=== PATIENT | female | born 1930 | race Caucasian/White ===

== ENCOUNTER 2016-05-09 08:02 | Day surgery (SDC) | payer MEDICARE, MEDICAID ==
[~2016-05-09] VITALS: Ht 165.1 cm; Wt 78.0 kg
[~2016-05-09 08:02] MED LIST: ALPR0.254 PO; AMLO10TA2 PO; AMLO2.5T PO; AMLO5TAB2 PO; APIX5TAB PO; ASCO-262 PO; ASCO500T7 PO; ASP325T PO; ASPI-983 PO; Apixaban; CARB1DRO OU; CLN.1T PO; FLEC100T PO; FLEC50TA; KRIL1CAP5 PO; L. R1CAP3 PO; LEVO75TA PO; LEVO75TA6 PO; LEVO88TA26 PO; MELA1TAB10 PO; METO-272 PO; METO75TA PO; MULT-1029 PO; NF-ESOM40C PO; OMEG-136 PO; OMEG1CAP51 PO; POLY255P PO; POTA2TAB15 PO; POTASSIUM GLUCONATE; PREDNISOLONE 1% OS; PSYL425P10 PO; ROSU10TA PO; ROSU10TA12 PO; SODI15DR6 OP; SODI3.5O3 OD; VALS160T28; VALS80TA30 PO; VITAMIN D PO; VLS80C PO; ZOLP5TAB6 PO; [UNRECOGNIZED DRUG - CODE] PO
--- OUTSIDE RECORDS SUMMARY | 2016-05-09 08:05 | XMS REPORT | Continuity of Care Document ---
Author Author [facility] Organization [facility] Address Unknown Phone Unavailable Care Team Providers Care Camp Boss Name Role Phone XIN CARCAMO MD PCP Insurance Providers Payer Name Policy Number Subscriber Name Relationship Wps Medicare [id number] AlmazArya L 18 Self / Same As Patient [facility] [employer] [id number] AlmazArya L 18 Self / Same As Patient Advance Directives Directive Response Recorded Date/Time Advance Directives No 03/26/16 3:00pm Health Care Power of Aprn No 03/26/16 3:00pm Organ Donor Yes 03/26/16 3:00pm Resuscitation Status Full Code 03/26/16 3:00pm Chief Complaint and Reason for Visit Chief Complaint AFIB WITH RVR Reason for Visit Vision changes Problems Active Problems Medical Problem Onset Date Status A-fib Unknown Acute Facial paresthesia Unknown Acute Hypertensive emergency Unknown Acute Vision changes Unknown Acute Medications Current Home Medications Medication Dose Units Route Directions Days/Qty Instructions Start Date Mu-Vits-Min Th/Lycopene/Lutein 1 Each 1 Tab Oral Daily 06/25/12 Aspirin 81 Mg 81 Mg Oral Bedtime 02/23/15 Metoprolol Succinate 50 Mg 50 Mg Oral Daily as needed for Daily@1830 02/23/15 Rosuvastatin Calcium 10 Mg 5 Mg Oral Bedtime PATIENT TAKES 1/2 TABLET OF THE 10 MG TABLET AT BEDTIME 02/23/15 Ascorbic Acid 500 Mg 500 Mg Oral Daily 02/23/15 Carboxymethylcellulose Sodium 1 Each 1 Drop Each Eye Four Times Daily as needed for Dry Eyes 02/23/15 Cholecalciferol (Vitamin D3) 5,000 Unit/1 Ml 5,000 Unit Oral Daily 02/23/15 Levothyroxine Sodium 75 Mcg 75 Mcg Oral Daily 03/26/16 Esomeprazole Magnesium 40 Mg 40 Mg Oral Daily 03/26/16 Amlodipine Besylate 5 Mg 5 Mg Oral Daily 03/26/16 Valsartan 80 Mg 80 Mg Oral Daily@1830 03/26/16 Polyethylene Glycol 3350 255 Gm 17 Gm Oral Daily 03/26/16 [place]-3/Dha/Epa/Fish Oil 1 Each 1 Cap Oral Twice A Day 03/26/16 Apixaban 5 Mg 5 Mg Oral Twice A Day 60 03/28/16 Flecainide Acetate 100 Mg 50 Mg Oral Twice A Day 60 03/28/16 Past Home Medications Medication Directions Ordered Status Levothyroxine Sodium 88 Mcg Tablet, 1 Each Oral Daily 06/25/12 Discontinued Esomeprazole Magnesium 40 Mg Capsule.dr, 40 Mg Oral Daily 06/25/12 Discontinued Metoprolol Succinate (Toprol Xl) 50 Mg Tab.sr.24h, 25 Mg Oral Daily 06/25/12 Discontinued Rosuvastatin Calcium 10 Mg Tablet, 0.5 Tab Oral Daily 06/25/12 Discontinued Zolpidem Tartrate 5 Mg Tablet, 5 Mg Oral Bedtime 06/25/12 Discontinued Valsartan 80 Mg Tablet, 80 Mg Oral Daily 06/25/12 Discontinued Clonidine Hcl 0.1 Mg Tab, 1 Each Oral Twice A Day 06/25/12 Discontinued Aspirin 325 Mg Tab, 325 Mg Oral Daily 06/25/12 Discontinued Psyllium Husk/Aspartame 425 Gm Powder, 425 Gm Oral Daily 06/25/12 Discontinued [place]-3 Fatty Acids/Fish Oil 1 Each Capsule, 1 Each Oral Daily 06/25/12 Discontinued Sodium Chloride 3.5 Gm Oint...g., 3.5 Gm Right Eye 06/25/12 Discontinued Sodium Chloride 15 Ml Drops, 15 Ml Ophthalmic 06/25/12 Discontinued Levothyroxine Sodium 75 Mcg Tablet, 75 Mcg Oral Daily 12/06/14 Discontinued Metoprolol Succinate 50 Mg Tab.er.24h, 50 Mg Oral Twice A Day 12/06/14 Discontinued Alprazolam 0.25 Mg Tablet, 0.25 Mg Oral Daily 12/06/14 Discontinued Rosuvastatin Calcium 10 Mg Tablet, 5 Mg Oral Daily 12/06/14 Discontinued Melatonin/Pyridoxine 1 Each Tablet, 1 Each Oral Bedtime 12/06/14 Discontinued [Vitamin D3 Softgels] , 5000 Oral Daily 12/06/14 Discontinued [Potassium Glaconate] , 595 Mg Daily 12/06/14 Discontinued Ascorbate Calcium 500 Mg Tablet, 500 Mg Oral Daily 12/06/14 Discontinued Krill Oil/[place]-3/Dha/Epa 1 Each Capsule, 1 Each Oral Daily 12/06/14 Discontinued Carboxymethylcellulose Sodium 1 Each Droperette, 1 Each Each Eye Four Times Daily 12/06/14 Discontinued [Prednisolone 1%] , 1 Drop Left Eye Twice A Day 12/06/14 Discontinued L. Rhamnosus/C/Zinc Cit/Yeast 1 Each Capsule, 1 Each Oral Daily 12/06/14 Discontinued Amlodipine Besylate 2.5 Mg Tablet, 2.5 Mg Oral Daily 12/06/14 Discontinued Levothyroxine Sodium 75 Mcg Tablet, 75 Mcg Oral Daily 02/23/15 Discontinued Amlodipine Besylate 10 Mg Tablet, 10 Mg Oral Daily 02/23/15 Discontinued Melatonin/Pyridoxine 1 Each Tablet, 3 Mg Oral Bedtime 02/23/15 Discontinued Potassium Gluconate 500 Mg Tablet, 500 Mg Oral Daily 02/23/15 Discontinued Social History Social History Problem Response Recorded Date/Time Alcohol Use Denies Use 12/06/2014 3:51am Recreational Drug Use No 12/06/2014 3:51am Recent Foreign Travel No 03/26/2016 3:00pm Recent Infectious Disease Exposure No 03/26/2016 3:00pm Sexually Transmitted Disease No 03/26/2016 4:00pm HIV/AIDS No 03/26/2016 4:00pm Smoking Status Never a Smoker 03/26/2016 3:00pm Recent Hopitalizations No 03/26/2016 4:00pm Sexually Transmitted Disease No 03/26/2016 4:00pm Query Response Start Date Stop Date Smoking Status Never a Smoker Hospital Discharge Instructions No hospital discharge instructions. Plan of Care Discharge Date 03/28/16 10:20am Disposition 09 ADMITTED INPATIENT Instructions/Education Provided Atrial Fibrillation (DC) Prescriptions See Medication Section Follow-up Orders BMP-Basic Metabolic Panel Referrals (Unspecified) - Reason(s) for Referral: Follow up in Dr. Lagos's Office SaturdayApril 04 at 11:00 DR. Lagos 04/03 at 11am (Unspecified) - 1 Week Reason(s) for Referral: A-fib Care Plan and Goals Functional Status Query Response Date Recorded Patient Orientation Person Place Time Situation Eyes Open March 28, 2016 5:27pm Comprehension Ability Understands Concepts March 28, 2016 8:00am Allergies, Adverse Reactions, Alerts Allergen Type Severity Reaction Status Last Updated Angiotensin-converting enzyme inhibitor Adverse Reaction Intermediate Active 06/25/12 Immunizations No immunization records. Vital Signs Acute Vital Signs Vital Response Date/Time Temperature (Fahrenheit) 96.9 degrees F (97.6 - 99.5) 03/28/2016 10:20am Temperature (Calculated Celsius) 36.00764 degrees C (36.4 - 37.5) 03/28/2016 8:29am Temperature Source Tympanic 03/28/2016 10:20am Pulse Rate (adult) 61 bpm (60 - 90) 03/28/2016 10:20am Respiratory Rate 21 bpm (12 - 24) 03/28/2016 10:20am O2 Sat by Pulse Oximetry 96 % (88 - 100) 03/28/2016 10:20am Blood Pressure 134/69 mm Hg 03/28/2016 10:20am Blood Pressure Mean 90 mm Hg 03/28/2016 9:00am Pain Numeric Pain Scale 0-No Pain 03/28/2016 10:20am Height (Feet) 5 feet 03/26/2016 3:00pm Height (Inches) 5.00 inches 03/26/2016 3:00pm Height (Calculated Centimeters) 165.234118 cm 03/26/2016 3:00pm Weight (Pounds) 174 pounds 03/27/2016 8:10am Weight (Ounces) 0.0 oz 03/27/2016 8:10am Weight (Calculated Grams) 25405.073 gm 03/27/2016 8:10am Weight (Calculated Kilograms) 78.566491 kilograms 03/27/2016 8:10am Calculated BMI 29.0 03/26/2016 3:00pm Results Laboratory Results Test Name Result Units Flags Reference Collection Date/Time Result Date/ Time Comments White Blood Count 6.4 10^3/uL 4.3-11.0 03/28/2016 7:03am 03/28/2016 7: 30am Red Blood Count 3.99 10^6/uL L 4.35-5.85 03/28/2016 7:0303/28/2016 7: 30am Hemoglobin 12.3 G/DL 11.5-16.0 03/28/2016 7:0303/28/2016 7:30am Hematocrit 37 % 35-52 03/28/2016 7:0303/28/2016 7:30am Mean Corpuscular Volume 93 FL 80-99 03/28/2016 7:0303/28/2016 7: 30am Mean Corpuscular Hemoglobin 31 PG 25-34 03/28/2016 7:0303/28/2016 7: 30am Mean Corpuscular Hemoglobin Concent 33 G/DL 32-36 03/28/2016 7:03 7:30am Red Cell Distribution Width 14.1 % 10.0-14.5 03/28/2016 7:032015 7:30am Platelet Count 180 10^3/uL 130-400 03/28/2016 7:03/28/2016 7:30am Mean Platelet Volume 9.8 FL 7.4-10.4 03/28/2016 7:0303/28/2016 7: 30am Neutrophils (%) (Auto) 64 % 42-75 03/28/2016 7:03/28/2016 7:30am Lymphocytes (%) (Auto) 23 % 12-44 03/28/2016 7:0303/28/2016 7:30am Monocytes (%) (Auto) 9 % 0-12 03/28/2016 7:03/28/2016 7:30am Eosinophils (%) (Auto) 4 % 0-10 03/28/2016 7:0303/28/2016 7:30am Basophils (%) (Auto) 0 % 0-10 03/28/2016 7:0303/28/2016 7:30am Neutrophils # (Auto) 4.1 X 10^3 1.8-7.8 03/28/2016 7:0303/28/2016 7: 30am Lymphocytes # (Auto) 1.5 X 10^3 1.0-4.0 03/28/2016 7:0303/28/2016 7: 30am Monocytes # (Auto) 0.6 X 10^3 0.0-1.0 03/28/2016 7:03am 03/28/2016 7: 30am Eosinophils # (Auto) 0.3 10^3/uL 0.0-0.3 03/28/2016 7:03am 03/28/2016 7 :30am Basophils # (Auto) 0.0 10^3/uL 0.0-0.1 03/28/2016 7:03am 03/28/2016 7: 30am Prothrombin Time 12.9 SEC 12.2-14.7 03/26/2016 3:17pm 03/26/2016 3: 44pm INR Comment 1.0 0.8-1.4 03/26/2016 3:17pm 03/26/2016 3:44pm INTERPRETIVE DATA SUGGESTED THERAPEUTIC RANGE FOR INR'S: VENOUS THROMBOSIS, PULMONARY EMBOLISM, OR PREVENTION OF SYSTEMIC EMBOLISM (EG. IN ATRIAL FIBRILLATION): 2.0 - 3.0 MECHANICAL PROSTHETIC HEART VALVES: 2.5 - 3.5* *NOTE: INR'S UP TO 4.5 MAY BE NECESSARY IN SELECTED GROUPS OF HIGH RISK PATIENTS. [employer] CONSENSUS CONFERENCE ON ANTITHROMBOTIC THERAPY (2000). Activated Partial Thromboplast Time 32 SEC 24-35 03/26/2016 3:17pm 03/2016 3:44pm Sodium Level 130 MMOL/L L 135-145 03/28/2016 7:0303/28/2016 7:51am Potassium Level 4.0 MMOL/L 3.6-5.0 03/28/2016 7:0303/28/2016 7:51am Chloride Level 98 MMOL/L 98-107 03/28/2016 7:0303/28/2016 7:51am Carbon Dioxide Level 23 MMOL/L 21-32 03/28/2016 7:0303/28/2016 7: 51am Anion Gap 9 MMOL/L 5-14 03/28/2016 7:0303/28/2016 7:51am Blood Urea Nitrogen 17 MG/DL 7-18 03/28/2016 7:0303/28/2016 7:51am Creatinine 0.86 MG/DL 0.60-1.30 03/28/2016 7:0303/28/2016 7:51am BUN/Creatinine Ratio 20 03/28/2016 7:0303/28/2016 7:51am Estimat Glomerular Filtration Rate > 60 03/28/2016 7:03am 2015 7:51am GFR INTERPRETIVE DATA UNITS FOR ESTIMATED GFR (eGFR): mL/min/1.73 M2 REFERENCE RANGE FOR ESTIMATED GFR (eGFR) eGFR NORMAL eGFR >60 MODERATELY DECREASED eGFR 30-59 SEVERLY DECREASED eGFR 15-29 KIDNEY FAILURE <15 (OR DIALYSIS) Glucose Level 111 MG/DL H 70-105 03/28/2016 7:03am 03/28/2016 7:51am Calcium Level 8.2 MG/DL L 8.5-10.1 03/28/2016 7:03am 03/28/2016 7:51am Phosphorus Level 3.6 MG/DL 2.3-4.7 03/28/2016 7:0303/28/2016 7:51am Magnesium Level 2.0 MG/DL 1.8-2.4 03/28/2016 7:03am 03/28/2016 7:51am Total Bilirubin 0.7 MG/DL 0.1-1.0 03/26/2016 3:17pm 03/26/2016 3:57pm Alkaline Phosphatase 45 U/L 40-136 03/26/2016 3:17pm 03/26/2016 3:57pm Aspartate Amino Transf (AST/SGOT) 25 U/L 5-34 03/26/2016 3:17pm 2015 3:57pm Alanine Aminotransferase (ALT/SGPT) 20 U/L 0-55 03/26/2016 3:17pm 03/26 3:57pm B-Type Natriuretic Peptide 220.9 PG/ML H <100.0 03/26/2016 3:pm 2015 4:05pm Total Protein 6.7 G/DL 6.4-8.2 03/26/2016 3:17pm 03/26/2016 3:57pm Albumin 4.0 G/DL 3.2-4.5 03/26/2016 3:17pm 03/26/2016 3:57pm Thyroid Stimulating Hormone (TSH) 2.37 UIU/ML 0.35-4.94 03/26/2016 3: 17pm 03/26/2016 4:17pm Microbiology Results Procedure Source Result Collection Date/Time Result Date/Time MRSA Screen Nasal MRSA not isolated 03/26/2016 3:25pm 03/28/2016 6:35am Procedures Procedure Status Date Provider(s) Transesophageal echocardiography with cardioversion Active 03/27/16 OC LAGOS MD Tracing only of electrocardiogram Completed 03/26/16 OC LAGOS MD Tracing only of electrocardiogram Completed 03/27/16 OC LAGOS MD Transesophageal echocardiography with contrast Active 03/27/16 OC LAGOS MD Tracing only of electrocardiogram Completed 03/27/16 OC LAGOS MD Encounters Encounter Location Arrival/Admit Date Discharge/Depart Date Attending Provider Discharged Inpatient [facility] 03/26/16 3:00pm 10:20am OC LAGOS MD Recent Diagnosis Vision changes
--- OUTSIDE RECORDS SUMMARY | 2016-05-09 08:06 | XMS REPORT | Continuity of Care Document ---
Author Author [facility] Organization [facility] Address Unknown Phone Unavailable Care Team Providers Care Property Developer Name Role Phone XIN CARCAMO MD PCP Insurance Providers Payer Name Policy Number Subscriber Name Relationship Wps Medicare [id number] AlmazArya L 18 Self / Same As Patient [facility] [employer] [id number] AlmazArya L 18 Self / Same As Patient Advance Directives Directive Response Recorded Date/Time Advance Directives No 03/26/16 3:00pm Health Care Power of Dyed Raw Stock Blower Feeder No 03/26/16 3:00pm Organ Donor Yes 03/26/16 [...] 255 Gm 17 Gm Oral Daily 03/26/16 [place]-3/Dha/Epa/Fish Oil 1 Each 1 Cap Oral Twice [...] Powder, 425 Gm Oral Daily 06/25/12 Discontinued [place]-3 Fatty Acids/Fish Oil 1 Each Capsule, 1 [...] 500 Mg Oral Daily 12/06/14 Discontinued Krill Oil/[place]-3/Dha/Epa 1 Each Capsule, 1 Each Oral Daily [...] - 99.5) 03/28/2016 10:20am Temperature (Calculated Celsius) 36.60166 degrees C (36.4 - 37.5) 03/28/2016 8:29am [...] 5.00 inches 03/26/2016 3:00pm Height (Calculated Centimeters) 165.802741 cm 03/26/2016 3:00pm Weight (Pounds) 174 pounds 03/27/2016 8:10am Weight (Ounces) 0.0 oz 03/27/2016 8:10am Weight (Calculated Grams) 93367.073 gm 03/27/2016 8:10am Weight (Calculated Kilograms) 78.204584 kilograms 03/27/2016 8:10am Calculated BMI 29.0 03/26/2016 [...] SELECTED GROUPS OF HIGH RISK PATIENTS. [employer] [place] CONSENSUS CONFERENCE ON [...] Discharge/Depart Date Attending Provider Discharged Inpatient [facility] 03/26/16 3:00pm 10:20am OC LAGOS MD Recent Diagnosis Vision changes
[2016-05-09] MEDS ORDERED: LIDOCAINE 1% INJ 20 ML (XYLOCAINE) VIAL ONE (09:59)
[2016-05-09 10:26] VITALS: BP 182/115
[2016-05-09 11:20] VITALS: BP 173/110
--- NOTE | 2016-05-09 14:52 | DISCHARGE SUMMARY ---
PROCEDURE PHYSICIAN: OC MCCLURE REVEAL DEVICE IMPLANTATION REPORT DATE OF PROCEDURE: 05/09/2016 REFERRING PHYSICIAN: Dr. Zepeda. BRIEF HISTORY: Mrs. Muse is an 86-year-old lady with paroxysmal atrial fibrillation. She had a GERRY with cardioversion, unable to tolerate Cardizem secondary to bradycardia and underwent a second GERRY with cardioversion. She had another episode of atrial fibrillation with another cardioversion. She is back in atrial fibrillation with borderline tachycardia. I decided to proceed with Reveal implantation and started amiodarone and monitoring her heart rate. PROCEDURE NOTE: After explaining the procedure to the patient, all pros and cons were explained. All questions were answered. The patient signed a consent, then she was placed in the holding area. Local anesthesia applied. No sedation was needed. A small skin incision was made and Reveal Linq device was implanted subcutaneously [employer] with serial number [id number]. No complication noted. CONCLUSION: Successful Reveal implantation with no complications. FINAL DIAGNOSIS: 1. Paroxysmal atrial fibrillation. 2. TIA. 3. Coronary artery disease. 4. Hypertension. Job ID: [id number] Dictated Date: 05/09/2016 10:50:31 Can Filling And Closing Machine Tender Date: 05/09/2016 14:50:10/inga
== END 2016-05-09 13:04 | disposition home or self-care (01) ==
LOC: CATH 08:02
PROVIDERS: ATTEND Internal Medicine Cardiovascular Disease
DX: I48.0 Paroxysmal atrial fibrillation (principal); I25.10 Atherosclerotic heart disease of native coronary artery without angina pectoris; I10 Essential (primary) hypertension; E78.5 Hyperlipidemia, unspecified; E03.9 Hypothyroidism, unspecified; E22.2 Syndrome of inappropriate secretion of antidiuretic hormone; Z79.01 Long term (current) use of anticoagulants; Z86.73 Personal history of transient ischemic attack (TIA), and cerebral infarction without residual deficits; Z79.899 Other long term (current) drug therapy
CPT/HCPCS: 33282

== ENCOUNTER → 2016-11-21 | Outpatient (CLI) | payer MEDICARE, MEDICAID | LOC: CARD 07:38 | PROVIDERS: ATTEND Physician Assistant | DX: I48.0 Paroxysmal atrial fibrillation (principal); I10 Essential (primary) hypertension; I65.23 Occlusion and stenosis of bilateral carotid arteries; E78.2 Mixed hyperlipidemia | CPT/HCPCS: 93306 ==

== ENCOUNTER → 2017-02-06 | Outpatient (CLI) | payer MEDICARE, MEDICAID ==
--- NOTE | 2017-02-06 13:41 | Diagnostic Imaging Report ---
CLINICAL INDICATION: Patient with hypertension. EXAM: Ultrasound of both kidneys. COMPARISON: None. FINDINGS: There are areas of mild cortical thinning seen bilaterally. Otherwise, both kidneys are normal in size, shape, and echogenicity without hydronephrosis, stones, or focal lesions with the right and left kidneys measuring 9.1 cm and 9.4 cm in their craniocaudal dimensions, respectively. The bladder is partially fluid-filled with no gross abnormality seen. The ureteral jets are not noted on this exam. IMPRESSION: 1: Mild cortical thinning of both kidneys. Otherwise, unremarkable bilateral renal ultrasound. 2: Limited visualization of the bladder shows no significant abnormality. Dictated by: Dictated on workstation # [id number]
== END ==
LOC: RAD 12:01
PROVIDERS: ATTEND Internal Medicine Nephrology
DX: I12.9 Hypertensive chronic kidney disease with stage 1 through stage 4 chronic kidney disease, or unspecified chronic kidney disease (principal); N18.3 Chronic kidney disease, stage 3 (moderate); E87.1 Hypo-osmolality and hyponatremia; R60.0 Localized edema
CPT/HCPCS: 76770

== ENCOUNTER 2017-03-21 19:05 | Emergency (ER) | payer MEDICARE, MEDICAID ==
[~2017-03-21] VITALS: Ht 165.1 cm; Wt 78.0 kg
[~2017-03-21 19:05] MED LIST changes: +METO-370 PO
--- NOTE | 2017-03-21 19:10 | ED Head Injury ---
General Chief Complaint: Trauma-Non Activation Stated Complaint: FELL Source: patient Exam Limitations: no limitations History of Present Illness Time seen by provider: 19:08 Initial Comments To ER with reports of a fall. She arrives per EMS from home. Patient fell face first onto the concrete sidewalk while she was carrying in groceries. Believes that she stumbled. Has no pain anywhere except for her forehead. No loss of consciousness. No nausea or vomiting. No neck pain. GCS 15. She is concerned because she is on Eliquis for history of atrial fibrillation. Primary care is Shasha Chaudhari nurse practitioner at the [facility] and shipping services sales representative is Dr. Lagos. Occurred: this evening Severity: moderate Loss of Consciousness: no loss of consciousness Associated Systoms: Headaches, No Nausea/Vomiting Allergies and Home Medications Allergies Coded Allergies: DMITRIY Inhibitors (Unverified Adverse Reaction, Intermediate, 04/14/16) Home Medications Allopurinol 100 Mg Tablet, (Reported) Amlodipine Besylate 5 Mg Tablet, 5 MG PO DAILY, (Reported) Apixaban 5 Mg Tablet, 5 MG PO BID, #60 Ref 4 Prescribed by: OC LAGOS on 03/28/16 0836 Ascorbic Acid 500 Mg Tablet, 500 MG PO DAILY, (Reported) Aspirin 81 Mg Tablet.dr, 81 MG PO HS, (Reported) Carboxymethylcellulose Sodium 1 Each Droperette, 1 DROP OU QID PRN for DRY EYES, (Reported) Cholecalciferol (Vitamin D3) 5,000 Unit/1 Ml Drops, 5,000 UNIT PO DAILY, ( Reported) Esomeprazole Magnesium 40 Mg Cap, 40 MG PO DAILY, (Reported) Flecainide Acetate 100 Mg Tablet, 50 MG PO BID, #60 Ref 2 Prescribed by: OC LAGOS on 03/28/16 0836 Furosemide 20 Mg Tablet, (Reported) Levothyroxine Sodium 100 Mcg Tablet, (Reported) Metoprolol Succinate 50 Mg Tab.er.24h, 50 MG PO DAILY PRN for DAILY@1830, ( Reported) Metoprolol Tartrate 75 Mg Tablet, 75 MG PO BID, #30 Prescribed by: LIAM NORRIS on 04/14/162006 Mu-Vits-Min Th/Lycopene/Lutein 1 Each Tablet, 1 TAB PO DAILY, (Reported) [place]-3/Dha/Epa/Fish Oil 1 Each Capsule.dr, 1 CAP PO BID, (Reported) Polyethylene Glycol 3350 255 Gm Powder, 17 GM PO DAILY, (Reported) Potassium Chloride 20 Meq Tab.er.prt, (Reported) Rosuvastatin Calcium 10 Mg Tablet, 5 MG PO HS, (Reported) PATIENT TAKES 1/2 TABLET OF THE 10 MG TABLET AT BEDTIME Valsartan 80 Mg Tablet, 80 MG PO DAILY@1830, (Reported) [Apixaban] , #60 (Reported) Constitutional: see HPI Eyes: No Symptoms Reported Ears, Nose, Mouth, Throat: no symptoms reported Respiratory: no symptoms reported Cardiovascular: no symptoms reported Genitourinary: no symptoms reported Musculoskeletal: no symptoms reported Skin: no symptoms reported Psychiatric/Neurological: See HPI, Headache Endocrine: No Symptoms Reported Hematologic/Lymphatic: No Symptoms Reported Past Ukaykkp-Lgstdy-Oqfhnw Hx Patient Social History Recent Hopitalizations: Yes (afib cardioversion 1 week ago) Immunizations Up To Date Tetanus Booster (TDap): Unknown Date of Pneumonia Vaccine: Mar 26, 2012 Date of Influenza Vaccine: Jan 14, 2016 Seasonal Allergies Seasonal Allergies: No Surgeries Surgeries: Abdominal, Adenoidectomy, Eye Surgery, Gallbladder, Hysterectomy, Thyroidectomy, Tonsillectomy Respiratory Respiratory Disorders: Pneumonia Cardiovascular Cardiac Disorders: High Cholesterol, Hypertension, Irregular Heartbeat Reproductive System Hx Reproductive Disorders: No Sexually Transmitted Disease: No HIV/AIDS: No Gastrointestinal Gastrointestinal Disorders: Gastroesophageal Reflux, Gall Bladder Disease Musculoskeletal Musculoskeletal Disorders: Arthritis Endocrine Endocrine Disorders: Hypothyroidsim HEENT HEENT Disorders: Cataract Cancer Cancer: Colon Psychosocial Behavioral Health Disorders: Anxiety Blood Transfusions Adverse Reaction to a Blood Tr: No Family Medical History Significant Family History: No Pertinent Family Hx Family Medial History: Colon cancer 19 MOTHER (STARTED IN UTERUS) Hypertension 19 MOTHER Neoplasm 19 FATHER (KIDNEY CANCER) Physical Exam Vital Signs Vital Sign - Last 12Hours 03/21/17 19:20 Temp 97.1 Pulse 92 Resp 16 B/P (MAP) 163/117 (132) Pulse Ox 94 O2 Delivery Room Air Capillary Refill : General Appearance: WD/WN, no apparent distress HEENT: PERRL/EOMI, normal ENT inspection, other (ecchymosis to the right side of the forehead, small laceration to the bridge of the nose,) Neck: non-tender, full range of motion Respiratory: no respiratory distress, no accessory muscle use Gastrointestinal: normal bowel sounds, non tender, soft Psychiatric: alert, oriented x 3 Crainal Nerves: normal hearing, normal speech, PERRL Skin: normal color, warm/dry Jacey Coma Score Best Eye Response: (4) Open Spontaneously Best Verbal Response: (5) Oriented Best Motor Response: (6) Obeys Commands Jacey Total: 15 Progress/Results/Core Measures Results/Orders My Orders Orders - KAMALA SAINI APRN Ct Head/Cervical Spine Wo (03/21/17 19:07) Dipht,Pertuss(Acell),Tet Adult (Boostrix (03/21/17 19:15) Medications Given in ED Current Medications Medications Dose Ordered Sig/Socrates Route Start Time Stop Time Status Last Admin Dose Admin Diphtheria/ Tetanus/Acell Pertussis 0.5 ml ONCE ONCE IM 03/21/17 19:15 03/21/17 19:16 DC 03/21/17 19:34 0.5 ML Vital Signs/I&O Vital Sign - Last 12Hours 03/21/17 19:20 Temp 97.1 Pulse 92 Resp 16 B/P (MAP) 163/117 (132) Pulse Ox 94 O2 Delivery Room Air Diagnostic Imaging Diagonstic Imaging: CT Comments NAME: ARYA CHANG [facility] REC#: [id number] PT STATUS: REG ER : 1930 PHYSICIAN: KAMALA SAINI APRN ADMIT DATE: 03/21/17/ER Draft Date of Exam:03/21/17 CT HEAD/CERVICAL SPINE WO PROCEDURE: CT head and CT cervical spine without contrast. TECHNIQUE: Multiple contiguous axial images were obtained through the brain and cervical spine without the use of intravenous contrast. Sagittal and coronal reformations through the cervical spine were then performed. INDICATION: Head and neck pain after fall. COMPARISON: Prior examination from 12/06/14. FINDINGS: There is prominence of the ventricles and sulci. There is some chronic microvascular ischemic disease. There is no hydrocephalus. There is no midline shift. There is no intracranial mass, hemorrhage or extra-axial fluid collection. Calvarium is intact. Sinuses and mastoid air cells are clear. There is straightening of the normal cervical lordosis. The vertebral body heights are well maintained. There is multilevel degenerative disc disease with some posterior facet arthropathy. There is no fracture or traumatic subluxation. Prevertebral soft tissues are within normal limits. The lung apices are clear. IMPRESSION: 1. No acute intracranial abnormality. There is some atrophy and chronic microvascular ischemic disease. 2. Moderate cervical spondylosis and degenerative disc disease without acute fracture or traumatic subluxation. Dictated on workstation # [id number] Dict: 03/21/171924 Trans: 03/21/171935 [facility] [id number] Interpreted by: CHARLENE VAUGHAN MD Electronically signed by: Departure Impression Impression: Primary Impression: Head injury Qualified Codes: S09.90XA - Unspecified injury of head, initial encounter Additional Impression: Scalp contusion Qualified Codes: S00.03XA - Contusion of scalp, initial encounter Disposition: 01 HOME, SELF-CARE Condition: Improved Departure-Patient Inst. Decision time for Depature: 19:34 Referrals: XIN CARCAMO MD (PCP/Family) Primary Care Physician Patient Instructions: Closed Head Injury, Contusion (DC) Add. Discharge Instructions: 1. Return to ER for any vomiting, severe headache or any other concerns such as confusion. All discharge instructions reviewed with patient and/or family. Voiced understanding. KAMALA SAINI DEODORIZER OPERATOR Mar 21, 2017 19:10
--- OUTSIDE RECORDS SUMMARY | 2017-03-21 19:10 | XMS REPORT ---
Author Author STEVEN SCHILLING Organization [facility] Address [address] [place] [address] Care Team Providers Care Cloth Coverer Name Role Phone TONIEAUBREEA Unavailable PROBLEMS Type Condition ICD9-CM Code COS45-JR Code Onset Dates Condition Status SNOMED Code Problem Dental examination Z01.20 Active 945644927 Problem Encounter for dental examination Z01.20 Active [id number] ALLERGIES Substance Reaction Event Type Date Status N.K.D.A. Unknown Non Drug Allergy Mar, Unknown SOCIAL HISTORY No smoking Hx information available PLAN OF CARE Activity Details Follow Up 6 Months Reason:Recall VITAL SIGNS Heart Rate 101 bpm 2016-04-03 Blood pressure systolic 129 mmHg 2016-04-03 Blood pressure diastolic 86 mmHg 2016-04-03 MEDICATIONS Medication Instructions Dosage Frequency Start Date End Date Duration Status Valsartan 80 MG Orally Once a day 1 tablet 24h Active Nexium 40 MG Orally Once a day 1 capsule 24h Active Metoprolol Succinate ER 50 MG Orally Once a day 1 tablet 24h Active Flecainide Acetate 50 MG Active Synthroid Active Ecotrin 325 MG Orally Once a day 1 tablet 24h Active Crestor 10 MG Orally Once a day 1 tablet 24h Active Eliquis 5 MG Active Vitamin D-3 5000 UNIT Active RESULTS No Results PROCEDURES Procedure Date Ordered Related Diagnosis Body Site PROPHYLAXIS - ADULT Apr 03, 2016 TOPICAL FLUORIDE VARNISH Apr 03, 2016 IMMUNIZATIONS No Known Immunizations
[2017-03-21] MEDS ORDERED: TETANUS,DIPTH,PERTUSS P/F (BOOSTRIX) 0.5 ML VIAL IM ONE (19:15)
[2017-03-21] MEDS ORDERED: ALLO100T (19:20)
[2017-03-21] MEDS ORDERED: FURO20TA4 (19:20)
[2017-03-21] MEDS ORDERED: POTA20TA15 (19:20)
[2017-03-21] MEDS ORDERED: LEVO100T (19:20)
--- NOTE | 2017-03-21 19:36 | Diagnostic Imaging Report ---
PROCEDURE: CT head and CT cervical spine without contrast. TECHNIQUE: Multiple contiguous axial images were obtained through the brain and cervical spine without the use of intravenous contrast. Sagittal and coronal reformations through the cervical spine were then performed. INDICATION: Head and neck pain after fall. COMPARISON: Prior examination from 12/06/14. FINDINGS: There is prominence of the ventricles and sulci. There is some chronic microvascular ischemic disease. There is no hydrocephalus. There is no midline shift. There is no intracranial mass, hemorrhage or extra-axial fluid collection. Calvarium is intact. Sinuses and mastoid air cells are clear. There is straightening of the normal cervical lordosis. The vertebral body heights are well maintained. There is multilevel degenerative disc disease with some posterior facet arthropathy. There is no fracture or traumatic subluxation. Prevertebral soft tissues are within normal limits. The lung apices are clear. IMPRESSION: 1. No acute intracranial abnormality. There is some atrophy and chronic microvascular ischemic disease. 2. Moderate cervical spondylosis and degenerative disc disease without acute fracture or traumatic subluxation. Dictated by: Dictated on workstation # [id number]
[2017-03-21 19:53] VITALS: BP 156/91
== END 2017-03-21 19:53 | disposition home or self-care (01) ==
LOC: EDUNIT# 19:05 → ER 19:06
DX: S09.90XA Unspecified injury of head, initial encounter (principal); S00.03XA Contusion of scalp, initial encounter; I48.91 Unspecified atrial fibrillation; I10 Essential (primary) hypertension; E78.00 Pure hypercholesterolemia, unspecified; K21.9 Gastro-esophageal reflux disease without esophagitis; E03.9 Hypothyroidism, unspecified; F41.9 Anxiety disorder, unspecified; Z80.0 Family history of malignant neoplasm of digestive organs; Z80.51 Family history of malignant neoplasm of kidney; Z87.19 Personal history of other diseases of the digestive system; Z79.01 Long term (current) use of anticoagulants; Z79.82 Long term (current) use of aspirin; Z90.710 Acquired absence of both cervix and uterus; Z90.89 Acquired absence of other organs; Z87.01 Personal history of pneumonia (recurrent); W10.1XXA Fall (on)(from) sidewalk curb, initial encounter
CPT/HCPCS: 70450; 72125; 90715; 99284

== ENCOUNTER → 2019-09-10 | Outpatient (CLI) | payer MEDICARE, MEDICAID ==
[~2019-09-10] MED LIST changes: +ALLO100T; -AMLO10TA2 PO; +AMLO10TA7 PO; -AMLO2.5T PO; +AMLO2.5T4 PO; -AMLO5TAB2 PO; +AMLO5TAB9 PO; +FURO20TA4; +LEVO100T; -METO-370 PO; +METO50TA7 PO; -POLY255P PO; +POLY255P16 PO; +POTA20TA15; -ROSU10TA PO; +ROSU10TA22 PO; -VALS160T28; +VALS160T29; -VALS80TA30 PO; +VALS80TA31 PO
== END ==
LOC: CARD 13:32
PROVIDERS: ATTEND Physician Assistant
DX: I65.29 Occlusion and stenosis of unspecified carotid artery (principal); I10 Essential (primary) hypertension; I08.1 Rheumatic disorders of both mitral and tricuspid valves; I48.21 Permanent atrial fibrillation
CPT/HCPCS: 93306

== ENCOUNTER → 2019-09-21 | Outpatient (CLI) | payer MEDICARE, MEDICAID ==
[~2019-09-21] VITALS: Ht 165 cm; Wt 81.0 kg
[~2019-09-21] MED LIST changes: +REGADENOSON 0.4 MG/5 ML SYR (LEXISCAN) IV ONE
[2019-09-21] MEDS: CATHETER FLUSH 10 ML SYR IV PRN ×2 (08:02→09:07)
[2019-09-21 09:05] VITALS: BP 191/95
--- NOTE | 2019-09-21 11:39 | Cardiology Stress Test Report ---
Stress Test Report Date of Procedure/Referring: Date of Procedure: Sep 21, 2019 PCP Linda Rosado Admitting Physician Kj Zepeda MD Indications: CAD Baseline Heart Rate: 83 Baseline Blood Pressure: Blood Pressure Systolic: 191 Blood Pressure Diastolic: 95 Baseline EKG: Baseline EKG: NSR Summary: Patient received 0.4 mg Lexiscan for stress test, ECG, heart rate and blood pres sure were monitored continuously. Resting and stress dose of radio tracer were injected, imaging was acquired and reviewed in short axis, horizontal long axis and vertical long axis views. TID 1.17 SSS 4 SDS 4 EF 80% Conclusion: 1. Patient tolerated Lexiscan well 2. Breast attenuation with typical female pattern, no significant ischemia or infarction on SPECT images 3. Baseline hypertension persisted throughout test 4. Normal left ventricular size and contractibility, EF 80 percent OC MCCLURE MD Sep 21, 2019 11:39
== END ==
LOC: CARD 07:47
PROVIDERS: ATTEND Physician Assistant
DX: I34.0 Nonrheumatic mitral (valve) insufficiency (principal); I25.10 Atherosclerotic heart disease of native coronary artery without angina pectoris; I48.21 Permanent atrial fibrillation; I10 Essential (primary) hypertension; I65.23 Occlusion and stenosis of bilateral carotid arteries; N64.89 Other specified disorders of breast
CPT/HCPCS: 78452; 93017